=== PATIENT | male | born 1975 | race Caucasian/White ===

== ENCOUNTER → 2020-03-29 | Outpatient (CLI) | payer OTHER ==
[~2020-03-29] MED LIST: OMNIPAQUE 350 MG/ML, 100ML BOTTLE ONE
[2020-03-29 16:07] LABS: CREATININE 0.97 mg/dL (0.7-1.3)
== END | disposition home or self-care (01) ==
LOC: RAD 15:25
PROVIDERS: ATTEND Family Medicine
DX: K61.1 Rectal abscess (principal); R59.9 Enlarged lymph nodes, unspecified; K76.89 Other specified diseases of liver
CPT/HCPCS: 36415; 74177; 82565; Q9967